=== PATIENT | male | born 1960 | race Two or more races ===

== ENCOUNTER 2022-08-17 04:34 | Day surgery (SDC) | payer BC ==
[2022-08-16 12:01] VITALS: BMI 22.6
[2022-08-17 09:35] VITALS: TEMP 97.5
[2022-08-17 10:11] VITALS: RESP 17
[2022-08-17 10:30] VITALS: BP 102/69; PULSE 69
== END 2022-08-17 10:08 | disposition home or self-care (01) ==
LOC: JASU-ENDO 04:34
PROVIDERS: ATTEND Internal Medicine Gastroenterology
PROC: 0DJD8ZZ Inspection of Lower Intestinal Tract, Via Natural or Artificial Opening Endoscopic (ICD-10-PCS; principal; 2022-08-17 08:30)
DX: Z12.11 Encounter for screening for malignant neoplasm of colon (principal); K57.30 Diverticulosis of large intestine without perforation or abscess without bleeding; K64.8 Other hemorrhoids